=== PATIENT | male | born 1955 | race Caucasian/White ===

== ENCOUNTER 2024-01-02 05:54 | Observation (INO) ==
--- NOTE | 2023-12-28 14:45 | Anesthesiology Consultation ---
Date of Service December 28, 2023 Assessment & Plan (1) Encounter for pre-operative examination: Chart Review Chart Review: Pending: Refer to Additional Notes / Consult section (please obtain most recent Cardio note for additional info and 12/28/23 PCP note/triage Re: current sx) and Patient NOT seen in Pre Admission Testing Infectious Disease screening: Per PAT nursing assessment on 12/28/23, No known infectious disease contacts in past 10 days. No recent travel outside the country. Pt notes cough and sinus congestion since 12/10/23. Taking OTC Robitussin. Has taken 2 home COVID-19 tests; both negative: 12/19/23 and 12/23/23. Pt to call PCP 12/28/23 to discuss current sx in preparation for upcoming surgery. History Surgery Operation Date: 01/02/24 09:25 Proposed Procedures p Laparoscopic Robotic Assisted Radical Retropubic Prostatectomy, Possible Open, Possible Pelvic Lymph Node Dissection - Bernard Barclay MD Height/Weight Height: 5 ft 10 in Weight: 99.79 kg Allergies Allergy/AdvReac Type Severity Reaction Status Date / Time shrimp Allergy Intermediate HIVES Verified 12/28/23 13:27 Shellfish Allergy Intermediate hives Uncoded 12/28/23 13:27 Medications Home Medications Medication Instructions Recorded Confirmed Last Taken Lactobacillus-Bifidobacterium 30 1 cap PO HS 09/06/23 12/28/23 Unknown billion cell capsule,delayed release celecoxib 200 mg capsule (Celebrex) 200 mg PO QAM 09/06/23 12/28/23 Unknown cholecalciferol (vitamin D3) 25 25 mcg PO HS 09/06/23 12/28/23 Unknown mcg (1,000 unit) capsule coenzyme Q10 100 mg capsule 300 mg PO HS 09/06/23 12/28/23 Unknown empagliflozin 25 mg tablet 25 mg PO QAM 09/06/23 12/28/23 Unknown (Jardiance) isosorbide mononitrate 30 mg 15 mg PO BID 09/06/23 12/28/23 Unknown tablet,extended release 24 hr magnesium oxide 250 mg PO HS 09/06/23 12/28/23 Unknown metoprolol succinate 25 mg 25 mg PO QAM 09/06/23 12/28/23 Unknown tablet,extended release 24 hr nitroglycerin 0.4 mg sublingual 0.4 mg sublingual Q5M PRN Chest 09/06/23 12/28/23 Unknown tablet Pain sitagliptin phosphate 100 mg 100 mg PO QAM 09/06/23 12/28/23 Unknown tablet (Januvia) alpha lipoic acid 300 mg capsule 300 mg PO BID 12/28/23 12/28/23 Unknown ascorbate calcium (vitamin C) 500 500 mg PO BID 12/28/23 12/28/23 Unknown mg tablet aspirin 81 mg capsule 81 mg PO HS 12/28/23 12/28/23 Unknown atorvastatin 40 mg tablet (Lipitor) 40 mg PO HS 12/28/23 12/28/23 Unknown calcium carbonate 333 mg-magnesium 1 tab PO QAM 12/28/23 12/28/23 Unknown oxide 133 mg-zinc sulf 5 mg tablet ezetimibe 10 mg tablet (Zetia) 10 mg PO QAM 12/28/23 12/28/23 Unknown folic acid 400 mcg tablet 0.4 mg PO HS 12/28/23 12/28/23 Unknown guaifenesin 100 mg/5 mL oral liquid 200 mg PO Q4H PRN Cough 12/28/23 12/28/23 Unknown losartan 50 mg tablet 50 mg PO BID 12/28/23 12/28/23 Unknown metformin 1,000 mg tablet 1,000 mg PO BID 12/28/23 12/28/23 Unknown vsuvhtfxwhtv-jvewtcwk-mkguzk 1 tab PO QAM 12/28/23 12/28/23 Unknown tablet (Multivitamin 50 Plus tablet) omeprazole 20 mg capsule,delayed 20 mg PO QAM 12/28/23 12/28/23 Unknown release turmeric root extract 500 mg tablet 1,500 mg PO BID 12/28/23 12/28/23 Unknown vitamin A-vitamin C-vit E-min 1 tab PO QAM 12/28/23 12/28/23 Unknown tablet vitamin B complex 1 tab PO QAM 12/28/23 12/28/23 Unknown Past Medical History Medical History (Updated 12/28/23 @ 15:11 by Roro Manriquez PA-C) CAD (coronary artery disease) s/p CABG x 1 1992 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 Diabetes mellitus, type 2 NIDDM GERD (gastroesophageal reflux disease) HTN (hypertension) Hx of basal cell carcinoma treated with a cream. Hyperlipidemia Osteoarthritis Peripheral vascular disease Prostate cancer dx 10/2023 SCC (squamous cell carcinoma) current - treating with cream located on right cheek Sleep apnea bipap at night URI (upper respiratory infection) current sinus congestion and cough since 12/10/23. treating with OTC cough medication. advised to call PCP today to evaluate for upcoming surgery. Past Family History Family History Mother , in her 70s Diabetes Hx of CABG Dementia Father , in his 80s Myocardial infarction Stroke Oral cancer Brother Cancer of kidney Myocardial infarction Diabetes Hx of CABG Sister Diabetes Sister Diabetes Daughter No problems noted. Past Surgical History Surgical History (Updated 12/28/23 @ 15:11 by Roro Manriquez PA-C) H/O basal cell carcinoma excision (2000) History of cardiac cath (1991) r/t angina - no stents, attempted angioplasty. History of colonoscopy History of surgery Surgery on right groin (iliac artery) due to restricted circulation History of tonsillectomy Hx of LASIK (2003) bilateral Hx of prostate biopsy (11/14/23) GHAZALA Torres S/P angioplasty (1991) S/P CABG x 1 (1992) 07/1992 S/P UPPP (uvulopalatopharyngoplasty) Social History Smoking Status: Former smoker Smoking cigarettes per day: 1 PPD x 30 yrs Do You Dip or Chew Tobacco: No Smoking End Date: 02/2003 Hx Alcohol Use: Yes Alcohol type: hard liquor alcohol intake frequency: holidays/special occasions only Hx Substance Use: No Lab Results Anesthesia Preop Results Results Anesthesia Widget: WBC 7.34 K/ul (4.8-10.8) 12/28/23 Hgb 14.6 g/dl (14.0-18.0) 12/28/23 Hct 42.2 % (42.0-52.0) 12/28/23 Plt 193 K/uL (130-400) 12/28/23 Na 138 mmol/L (136-145) 12/28/23 K 4.2 mmol/L (3.5-5.1) 12/28/23 Cl 104 mmol/L (98-107) 12/28/23 CO2 26 mmol/L (21-32) 12/28/23 BUN 16 mg/dl (6-23) 12/28/23 Creat 1.13 mg/dl (0.6-1.4) 12/28/23 Glucose Level 126 mg/dl (70-99(Fasting)) H 12/28/23 PT 10.2 Seconds (9.0-12.0) 12/18/23 PTT 26 Seconds (21-31) 12/18/23 INR 0.9 (0.9-1.1) 12/18/23 Testing Electrocardiogram Date: 12/28/23 SB with 1st degree AVB. 59bpm. Compared to 05/18/16, [place] interval has increased. Chest X-Ray Date: 12/28/23 Findings: + NAD stable CM
[2024-01-02] MEDS: LACTATED RINGER'S 1,000 ML IV SCH (06:18)
[2024-01-02] MEDS: HEPARIN SOD 5,000 UNIT/0.5 ML VIAL SQ SCH ×2 (06:44→20:22)
[2024-01-02] MEDS ORDERED: MIDAZOLAM HCL 1 MG/ML 2ML VIAL ONE (06:46)
[2024-01-02] MEDS ORDERED: fentaNYL citrate PF 100 MCG/2 ML VIAL ONE ×2 (06:46→10:07)
[2024-01-02] MEDS ORDERED: LIDOCAINE 2% 2 ML VIAL/AMP(20MG/ML) INFIL ONE (06:46)
[2024-01-02] MEDS ORDERED: ONDANSETRON INJ 2 MG/ML 2 ML VIAL ONE ×2 (06:47→10:09)
[2024-01-02] MEDS ORDERED: DEXAMETHASONE SOD INJ 4 MG/ML VIAL ONE (06:47)
[2024-01-02] MEDS ORDERED: GLYCOPYRROLATE 0.2 MG/ML VIAL ONE (06:47)
[2024-01-02] MEDS ORDERED: NEOSTIGMINE METHYLSULFATE 1 MG/ML 10ML VIAL ONE (06:47)
[2024-01-02] MEDS ORDERED: ePHEDrine sulfate 50 MG/ML AMP IV PRN (07:11)
[2024-01-02] MEDS ORDERED: ONDANSETRON INJ 2 MG/ML 2 ML VIAL IV PRN ×2 (07:11→11:36)
[2024-01-02] MEDS ORDERED: HYDROmorphone INJ 2 MG/ML SYR/VIAL IV PRN (07:11)
[2024-01-02] MEDS ORDERED: fentaNYL citrate PF 100 MCG/2 ML VIAL IV PRN (07:11)
[2024-01-02] MEDS ORDERED: PROMETHAZINE HCL 6.25 MG in SODIUM CHLORIDE 0.9% 50 ML IV PRN (07:11)
[2024-01-02] MEDS ORDERED: ATROPINE SULFATE 0.1 MG/ML 10ML SYR IV PRN (07:11)
--- NOTE | 2024-01-02 07:19 | History & Physical Bridge Note ---
Date of Service January 02, 2024 History & Physical Bridge Note I have examined the patient, reviewed the History & Physical and in the interval since the performance of the History & Physical I have noted the following changes of clinical significance: no changes noted
--- OUTSIDE RECORDS SUMMARY | 2024-01-02 07:36 | External Medical Summary | Summary of Care ---
Author Name Unknown Organization [facility] Address [address] [address] [facility] [place] [address] Phone [phone] Care Team Providers Care Binding Cementer French Cord Name Role Phone Casandra CHIRINOS MD, Omer Fernando Primary Care Provider [phone] Reason for Visit * Reason Comments Acute Encounter Details Date Type Department Care Team (Late st Contact Info) Description 12/29/2023 11:20 AM EDT Office Visit Family Medicine [address] [place] [phone] Bree Noel PA-C [address] [place] [address] [place] [address] Bronchitis, complicated* Allergies Active Allergy Reactions Criticality Noted Date Comments Lisinopril Cough 12/07/2016 Shellfish Hives 07/03/2007 documented as of this encounter (statuses as of 12/29/2023) Medications Medication Sig Dispensed Refills Start Date End Date Status ASPIRIN EC LOW STRENGTH 81 MG PO TBECIndications:in evening Take 1 Tablet by mouth in the morning. 34 5 01/11/2007 Active VITAMIN C 1000 MG PO TABS 1 tablet per day Active Multiple Vitamins-Minerals (OCUVITE ADULT FORMULA) CAPS Take 1 Cap by mouth daily. Active Cholecalciferol (VITAMIN D-3) 1000 UNITS Capsule Take 2 Capsules by mouth in the morning. Active B Complex Capsule Take 1 Cap by mouth 2 times a day. Active Coenzyme Q10 (CO Q 10) 100 MG CAPS Take 3 Caps by mouth daily. Active Blood Glucose Monitoring Suppl (ACCU-CHEK GUIDE) w/Device KIT Use as directed. 1 Kit 08/10/2018 Active ACCU-CHEK FASTCLIX LANCETS MISC Up to 4 times daily as directed 102 Each 11 08/10/2018 Active Magnesium 250 MG Oral Tablet Take 1 Tablet by mouth in the morning. 30 Tab 06/10/2020 Active Folic Acid 400 MCG Oral Tablet Take 1 Tablet by mouth in the morning. 30 Tab 06/10/2020 Active Probiotic & Acidophilus Ex St Oral CapsuleIndications:karla ly Take 1 Cap by mouth. Indications: daily 30 Cap 06/10/2020 Active BiPAP every night at bedtime. Active Alpha-Lipoic Acid 200 MG Oral Capsule Take 1 Cap by mouth daily. Active Turmeric 500 MG Oral Capsule Take 750 mg by mouth daily. Active Multivitamin Adult Oral Tablet Take by mouth . Active Nitroglycerin 0.4 MG/SPRAY Translingual Solution (Nitrolingual)Indicati ons:Coronary atherosclerosis Place under the tongue 1 [place] every 5 minutes as needed for Pain, Chest. As directed. 12 g 1 09/27/2021 Active Calcium Magnesium Zinc 333-133-5 MG Oral Tablet Take by mouth 1 Tablet daily . Active Metoprolol Succinate ER 25 MG Oral Tablet Extended Release 24 Hour (toPROL XL)Indications:Atheros clerosis of coronary artery of blackfeet heart without angina pectoris, unspecified vessel or lesion type,Exertional angina (HCC),Coronary artery disease involving blackfeet coronary artery of blackfeet heart without angina pectoris,HTN, goal below 140/90 Take 1 Tablet by mouth in the morning. 90 Tablet 3 02/20/2023 Active Accu-Chek Guide In Vitro Strip (Glucose Blood) Up to 4 times daily as directed 100 Strip 11 04/20/2023 Active Ezetimibe 10 MG Oral Tablet (Zetia) Take 1 Tablet by mouth in the morning. 90 Tablet 3 05/01/2023 Active Empagliflozin 25 MG Oral Tablet (Jardiance) Take 1 Tablet by mouth in the morning. 90 Tablet 3 06/19/2023 Active Celecoxib 200 MG Oral Capsule (CeleBREX) Take 1 Capsule by mouth in the morning. 90 Capsule 1 06/26/2023 Active Losartan Potassium 50 MG Oral Tablet (Cozaar)Indications:Dy slipidemia, goal LDL below 70 Take 1 Tablet by mouth in the morning and 1 Tablet before bedtime. 180 Tablet 3 07/03/2023 Active SITagliptin Phosphate 100 MG Oral Tablet (Januvia) Take 1 Tablet by mouth in the morning. In the morning.. 90 Tablet 1 08/01/2023 Active Omeprazole 20 MG Oral Capsule Delayed Release (PriLOSEC)Indications: Esophageal reflux Take 1 Capsule by mouth in the morning. 90 Capsule 1 09/28/2023 Active Isosorbide Mononitrate ER 30 MG Oral Tablet Extended Release 24 Hour (Imdur)Indications:Exe rtional angina (HCC) Take 1/2 tab in the morning and 1/2 tab at night. 90 Tablet 2 10/03/2023 Active Sulfamethoxazole-Trime thoprim 800-160 MG Oral Tablet (Bactrim DS) Use as directed. Twice daily to take the day before the biopsy, day of the biopsy, and day after the biopsy. 6 Tablet 10/26/2023 Active metFORMIN HCl 1000 MG Oral Tablet (Glucophage)Indication s:Type 2 diabetes mellitus with hemoglobin A1c goal of less than 7.0% ([facility]) Take 1 Tablet by mouth 2 times a day with morning and evening meals. 180 Tablet 1 10/30/2023 Active Atorvastatin Calcium 40 MG Oral Tablet (Lipitor)Indications:T ype 2 diabetes mellitus with hemoglobin A1c goal of less than 7.0% ([facility]),Atherosclerosis of coronary artery of blackfeet heart without angina pectoris, unspecified vessel or lesion type Take 1 Tablet by mouth in the morning. 90 Tablet 1 11/21/2023 Active Azithromycin 250 MG Oral Tablet (Zithromax Z-Natanael)Indications:Bron chitis, complicated Take two tablets by mouth on first day, then 1 tablet daily until gone 6 Tablet 12/29/2023 Active documented as of this encounter (statuses as of 12/29/2023) Active Problems Problem Noted Date Diagnosed Date S/P CABG x 1 10/26/2023 Gastroesophageal reflux disease 10/26/2023 Follicular non-Hodgkin's lymphoma 10/26/2023 CHD (congenital heart disease) 10/26/2023 Trigger finger of left hand 10/26/2023 PVD (peripheral vascular disease) 05/10/2023 Exertional angina 04/20/2023 Type 2 diabetes mellitus wit h diabetic peripheral angiopathy without gangrene 05/21/2021 Claudication in peripheral vascular disease 09/1 11/2020 Essential hypertension with goal blood pressure less than 140/90 02/18/2019 DYSLIPIDEMIA, GOAL LDL BELOW 70 07/09/2009 Overview: Per Lipid Taxonomy. Type 2 diabetes mellitus wit h hemoglobin A1c goal of less than 7.0% 05/28/2009 Overview: Per Diabetes Taxonomy. ICD-10 update of inactive term ADVANCE DIRECTIVE INFORMATION 04/11/2005 HISTORY OF TOBACCO USE 09/15/2004 CORONARY ATHEROSCLEROSIS OF UNSPECIFIED TYPE OF VESSEL, LAC VIEUX OR GRAFT FM [id number] DIS NEC PULSATILE TINNITUS SENSORNEUR HEAR LOSS NOS Sleep apnea Allergic rhinitis documented as of this encounter (statuses as of 12/29/2023) Resolved Problems Problem Noted Date Diagnosed Date Resolved Date Exertional angina 08/29/2022 10/06/2022 Type 2 diabetes mellitus wit h hemoglobin A1c goal of less than 7.0% 01/11/2007 05/28/2009 Overview: Per Diabetes Taxonomy. ICD-10 update of inactive term PURE HYPERCHOLESTEROLEM 06/30 Overview: Per Lipid Taxonomy. Tobacco use disorder 012 Other diseases of respirator y system, not elsewhere classified 04/12/2017 Hypertrophy of nasal turbinates 04/12/2017 documented as of this encounter (statuses as of 12/29/2023) Immunizations Name Administration Dates Next Due COVID-19 mRNA, LNP-s, No Pre serve, 2-Dose Series (Qnovo) 11/01/2021,05/21/2021,11/04/2020,10/12 COVID-19, MRNA-LNP, 23-24, P F, 30 MCG/0.3 mL, 12 YRS AND ABOVE, IM (PFIZER-Comirnaty) 06/15/2023 Covid-19, Mrna, Lnp-s, Pf, B ivalent, 30 Mcg, IM, 12 yrs and above (Pfizer) 04/18/2022 H1N1 2009 Influenza, IM 09/25/2009 Pneumococcal Conjugate Vacci ne, 20-valent ([id number]) 12/22/2021 Pneumococcal Polysaccharide PPV23 (Pneumovax) 06/10/2020,07/10/2006 RSV Vac., Recomb, Adjuvant, PF,0.5 Ml (Arexvy) 05/08/2023 Season Influenza, Quad, PF, Adjuvanted, 65+ Yrs, IM (FLUAD) 04/15/2020 Seasonal Influenza, PF, 6 M & above, IM , (FluLaval or Fluzone) 05/06/2019,04/18/2018 Seasonal Influenza, Quadriva lent Hd (Fluzone Hd) 04/20/2023,04/14/2021 Seasonal Influenza, Quadriva lent, No Preserve, IM 04/12/2022,04/12/2017,05/25/2016,06/09 Seasonal Influenza, Split, I IV3, With Preserve, Inj 04/02/2014,05/08/2013,05/31/2012,05/03,05/12/2010,07/27/2009,05/23/2007 ,06/15/2006,06/11/2005 TD, Preservative Free 10/11/2017 TDAP, Age 7 and older, IM (Adacel) 09/25/2007 Varicella Zoster Vaccine (Adult) 12/04/2014 Zoster Vaccine Recombinant (Shingrix) 09/18/2020 ,07/17/2020 documented as of this encounter Social History Tobacco Use Types Packs/Day Years Used Date Smoking Tobacco: Former Cigarettes 1 33 0 03/10/1970 - 03/10/2003 Smokeless Tobacco: Never Tobacco Cessation:Counseling Given: Not Answered Alcohol Use Standard Drinks/Week Comments Yes 0 (1 standard drink = 0.6 oz pur e alcohol) 1 drink every 6 months PHQ-2 Answer Date Recorded PHQ Adult Total Score 0 12/22/2021 Hunger Vital Sign Answer Date Recorded Within the past 12 months, y ou worried that your food would run out before you got the money to buy more. Never true 04/24/20 23 Within the past 12 months, t he food you bought just didn't last and you didn't have money to get more. Never true 04/24/2023 Sex and Gender Information Value Date Recorded Sex Assigned at Male 12/22/2021 8:18 AM EDT Gender Identity Male 12/22/2021 8:18 AM EDT Sexual Orientation Straight 12/22/2021 8: 18 AM EDT Job Start Date Occupation Industry Not on file Not on file Not on file documented as of this encounter Last Filed Vital Signs Vital Sign Reading Time Taken Comments Blood Pressure 140/60 12/29/2023 10:54 AM EDT Pulse 66 12/29/2023 10:54 AM EDT Temperature 36.6 C (97.9 F) 12/29/2023 10:54 AM E DT Respiratory Rate - - Oxygen Saturation 98% 12/29/2023 10:54 AM EDT Inhaled Oxygen Concentration - - Weight 98.4 kg (217 lb) 12/29/2023 10:54 AM EDT Height - - Body Mass Index 31.14 12/07/2023 2:00 PM EDT documented in this encounter Functional Status Functional Status Response Date of Assess ment Are you deaf or do you have serious difficulty h earing? No 04/16/2021 Are you blind or do you have serious difficulty seeing, even when wearing glasses? No 04/16/2021 Do you have serious difficul ty walking or climbing stairs? (5 years old or older) No 04/16/2021 Do you have difficulty dress ing or bathing? (5 years old or older) No 04/16/2021 Because of a physical, menta l, or emotional condition, do you have difficulty doing errands alone such as visiting a doctor s office or shopping? (15 years old or older) No 04/16/20 21 Cognitive Status Response Date of Assessm ent Because of a physical, menta l, or emotional condition, do you have serious difficulty concentrating, remembering, or making decisions? (5 years old or older) No 04/16/2021 documented as of this encounter Progress Notes * Bree Noel PA-C - 12/29/2023 10:56 AM EDT Nursing Notes: Jasmeet Christian LPN 12/29/23 1055 Signed Chief Complaint Patient presents with Acute Productive cough with White mucus and slowly improving Duration- 12 days Tx: Robitussin Surgery is Scheduled for Monday. Prostatectomy Gala advised that he has apt to be seen The patient has been properly identified by confirmation of name and date of . Pt here today with cough, chest congestion, white colored sputum, nasal/head congestion for the past 12 days. It is improving. Pt denies fever, chills, nausea, vomiting, diarrhea, chest pain, SOB. Heis having prostatectomy on 01/01 and anesthesia told him to come and be evaluated. Review of patient's allergies indicates: Allergen Reactions Lisinopril Cough Shrimp [Shellfish] Hives Current Outpatient Medications Medication Sig Dispense Refill ASPIRIN EC LOW STRENGTH 81 MG PO TBEC Take 1 Tablet by mouth in the morning. 34 5 VITAMIN C 1000 MG PO TABS 1 tablet per day Multiple Vitamins-Minerals (OCUVITE ADULT FORMULA) CAPS Take 1 Cap by mouth daily. Cholecalciferol (VITAMIN D-3) 1000 UNITS Capsule Take 2 Capsules by mouth in the morning. B Complex Capsule Take 1 Cap by mouth 2 times a day. Coenzyme Q10 (CO Q 10) 100 MG CAPS Take 3 Caps by mouth daily. Blood Glucose Monitoring Suppl (ACCU-CHEK GUIDE) w/Device KIT Use as directed. 1 Kit 0 ACCU-CHEK FASTCLIX LANCETS MISC Up to 4 times daily as directed 102 Each 11 Magnesium 250 MG Oral Tablet Take 1 Tablet by mouth in the morning. 30 Tab 0 Folic Acid 400 MCG Oral Tablet Take 1 Tablet by mouth in the morning. 30 Tab 0 Probiotic & Acidophilus Ex St Oral Capsule Take 1 Cap by mouth. Indications: daily 30 Cap 0 BiPAP every night at bedtime. Alpha-Lipoic Acid 200 MG Oral Capsule Take 1 Cap by mouth daily. Turmeric 500 MG Oral Capsule Take 750 mg by mouth daily. Multivitamin Adult Oral Tablet Take by mouth . Nitroglycerin 0.4 MG/SPRAY Translingual Solution (Nitrolingual) Place under the tongue 1 [place] every 5 minutes as needed for Pain, Chest. As directed. 12 g 1 Calcium Magnesium Zinc 333-133-5 MG Oral Tablet Take by mouth 1 Tablet daily . Metoprolol Succinate ER 25 MG Oral Tablet Extended Release 24 Hour (toPROL XL) Take 1 Tablet by mouth in the morning. 90 Tablet 3 Accu-Chek Guide In Vitro Strip (Glucose Blood) Up to 4 times daily as directed 100 Strip 11 Ezetimibe 10 MG Oral Tablet (Zetia) Take 1 Tablet by mouth in the morning. 90 Tablet 3 Empagliflozin 25 MG Oral Tablet (Jardiance) Take 1 Tablet by mouth in the morning. 90 Tablet 3 Celecoxib 200 MG Oral Capsule (CeleBREX) Take 1 Capsule by mouth in the morning. 90 Capsule 1 Losartan Potassium 50 MG Oral Tablet (Cozaar) Take 1 Tablet by mouth in the morning and 1 Tablet before bedtime. 180 Tablet 3 SITagliptin Phosphate 100 MG Oral Tablet (Januvia) Take 1 Tablet by mouth in the morning. In the morning.. 90 Tablet 1 Omeprazole 20 MG Oral Capsule Delayed Release (PriLOSEC) Take 1 Capsule by mouth in the morning. 90Capsule 1 Isosorbide Mononitrate ER 30 MG Oral Tablet Extended Release 24 Hour (Imdur) Take 1/2 tab in the morning and 1/2 tab at night. 90 Tablet 2 Sulfamethoxazole-Trimethoprim 800-160 MG Oral Tablet (Bactrim DS) Use as directed. Twice daily to take the day before the biopsy, day of the biopsy, and day after the biopsy. 6 Tablet 0 metFORMIN HCl 1000 MG Oral Tablet (Glucophage) Take 1 Tablet by mouth 2 times a day with morning and evening meals. 180 Tablet 1 Atorvastatin Calcium 40 MG Oral Tablet (Lipitor) Take 1 Tablet by mouth in the morning. 90 Tablet 1 No current facility-administered medications for this visit. Past Medical History: Diagnosis Date Allergic rhinitis 2004 Benign neoplasm of colon 11/13/18 diverticulosis, polyp x1, no evidence of adenomatous tissue repeat 5 yrs Diabetic eye exam (HCC) 02/10/2012 no diabetic retinopathy Hypertrophy of nasal turbinates 2005 Other diseases of respiratory system, not elsewhere classified 2004 bronchitis Personal history of colonic polyps 2005 [facility], benign, repeat 2010 Sleep apnea 2005 Social History Socioeconomic History Marital status: Spouse name: Elyse Number of children: Not on file Years of education: Not on file Highest education level: Not on file Occupational History Occupation: [employer] Employer: [employer] Tobacco Use Smoking status: Former Current packs/day: 0.00 Average packs/day: 1 pack/day for 33.0 years (33.0 ttl pk-yrs) Types: Cigarettes Start date: 03/10/1970 Quit date: 03/10/2003 Years since quittin.8 Smokeless tobacco: Never Vaping Use Vaping status: Never Used Substance and Sexual Activity Alcohol use: Yes Comment: 1 drink every 6 months Drug use: No Sexual activity: Not on file Other Topics Concern Service Not Asked Blood Transfusions No Caffeine Concern Not Asked Occupational Exposure Yes Comment: paper dust Hobby Hazards Not Asked Sleep Concern Not Asked Stress Concern Not Asked Weight Concern Not Asked Special Diet Not Asked Back Care Not Asked Exercise Yes Comment: limited escercise Bike Helmet Not Asked Seat Belt Not Asked Self-Exams Not Asked Social History Narrative Not on file Social Determinants of Health Financial Resource Strain: Not on file Food Insecurity: No Food Insecurity (04/24/2023) Hunger Vital Sign Worried About Running Out of Food in the Last Year: Never true Ran Out of Food in the Last Year: Never true Transportation Needs: Not on file Physical Activity: Not on file Stress: Not on file Social Connections: Not on file Intimate Partner Violence: Not on file Housing Stability: Not on file O:Blood pressure 140/60, pulse 66, temperature 36.6 C (97.9 F), temperature source Tympanic, weight 98.4 kg (217 lb), SpO2 98%. GENERAL: alert, healthy, and no distress NECK: supple, no adenopathy, no bruits, thyroid normal size, non-tender, without nodularity EYES: conjunctiva are pink and non-injected, sclera clear EARS: External ears normal, Canals clear, TM's Normal NOSE: no mucosal erythema, no mucosal edema, no purulent discharge OROPHARYNX: no exudate, no erythema, lips, buccal mucosa, and tongue normal, and mucous membranes are moist HEART: regular rate & rhythm, no murmur, and no gallops LUNGS: chest symmetric with normal AP diameter, no chest deformities noted, no chest wall tenderness, lungs clear to auscultation A:Bronchitis, complicated (Primary) - Azithromycin 250 MG Oral Tablet (Zithromax Z-Natanael); Take two tablets by mouth on first day, then 1tablet daily until gone Start above med. Any questions/problems, please call. If anything changes, worsens, develops new sx, please call MARLEN[facility]. Follow Up: Return if symptoms worsen or fail to improve. Bree Noel PA-C documented in this encounter Nursing Notes * Jasmeet Christian LPN - 12/29/2023 10:51 AM EDT Chief Complaint Patient presents with Acute Productive cough with White mucus and slowly improving Duration- 12 days Tx: Robitussin Surgery is Scheduled for Monday. Prostatectomy Gala advised that he has apt to be seen The patient has been properly identified by confirmation of name and date of . documented in this encounter Plan of Treatment Upcoming Encounters Date Type Department Care Team (Late st Contact Info) Description 04/25/2024 9:00 AM EDT Office Visit Family Practice [facility] [place] [address] [facility] [place] [address] Omer Guajardo III, MD [address] [facility] [place] [address] Scheduled Procedures Name Priority Associated Diagnoses Date/Ti me COLONOSCOPY FLEXIBLE PROXIMA L DIAGNOSTIC Recall Special screening for malignant neoplasms, colon Health Maintenance Due Date Last Done Comments Cologuard 1999 Fecal Occult Blood Test 1999 Sigmoidoscopy 09/18/2006 09/18/2001 Depression Screening 12/22/2022 12/22/2021 COVID-19 Vaccine ( season) 2023 06/15/2023, 04/18/2022, 11/01/2021, Additional history exists HbA1c 05/02/2024 11/01/2023, 03/31, 08/29/2022, Additional history exists Diabetic Eye Exam 06/28/2024 06/28/2023, , 09/20/2021, Additional history exists Albumin/Creatinine Ratio 10/05/2024 024, 08/29/2022, 08/27/2021, Additional history exists B-12 10/05/2024 10/06/2023, 08/02, 12/22/2021, Additional history exists GFR 10/05/2024 10/06/2023, 08/02, 02/17/2022, Additional history exists Diabetic Foot Exam 10/23/2024 10/24/2023, 0 08/27/2021, 06/10/2020, Additional history exists Colonoscopy 01/20/2026 01/20/2021, 12/30, 01/19/2015, Additional history exists Colorectal Cancer Screening 01/20/2026 DTaP,Tdap,and Td Vaccines (3 - Td or Tdap) 10/12/2027 10/11/2017, 09/25/2007, 11/22/1999 Hepatitis C Screening Completed 01/27/2012 Zoster Vaccines Completed 09/18/2020, 06/30, 12/04/2014 RETIRED - COLONOSCOPY-EVERY 5 YRS AGES 18-100 Discontinued 01/20/2021, 01/20/2021, 01/19/2015, Additional history exists AAA Screening Completed 05/11/2021, 04/14/2021 Pneumococcal Vaccine: 65+ Years Completed 12/22/2021, 06/10/2020, 07/10/2006 Influenza Vaccine (FLU shot) Completed 04/20/2023, 04/12/2022, 04/14/2021, Additional history exists GARDASIL-HPV IMMUNIZATION SERIES Aged Out No longer eligible based on patient's age to complete this topic Hepatitis B Aged Out No longer eligi ble based on patient's age to complete this topic MENINGOCOCCAL (MENACTRA/MENVEO) Aged Out No longer eligible based on patient's age to complete this topic documented as of this encounter Medical Devices Implanted Type Area Director Cloud Transformation Device Identifier Shelf Expiration Date Model / Serial / Lot Patch Xenosure Vascular 2x9cm - [id number] Implanted:Qty : 1 on 04/16/2021 by Kwame Ktae MD at [facility] Right: Femoral Artery [employer] [id number] 06/27/2026 [id number] / [id number] / [id number] documented as of this encounter Visit Diagnoses Diagnosis Bronchitis, complicated- Primary Bronchitis, not specified as acute or chronic documented in this encounter Advance Directives * Full Code (Latest Code Status on File) Date Activated Date Inactivated Comments 04/16/2021 9:52 AM 04/17/2021 3:56 PM This order r eflects the patients wishes and were consensually agreed upon. Question Answer Comments Discussion of Advance Directives occurred with: Not Discussed * Full Code Date Activated Date Inactivated Comments 04/24/2008 1:01 PM 04/25/2008 7:05 PM Care Teams Binding Cementer French Cord Relationship Specialty Start Date End Date Omer Guajardo III, MD [address] [facility], [place] [address] PCP - General 01/18/1999 documented as of this encounter
[2024-01-02] MEDS: ceFAZolin 2000MG 2,000 MG/15 ML SYR IV SCH ×2 (07:45→15:41)
[2024-01-02] MEDS ORDERED: PROPOFOL IV EMULSION 10 MG/ML 20 ML VIAL IV ONE (08:56)
[2024-01-02] MEDS ORDERED: ROCURONIUM BROMIDE 10 MG/ML 5 ML VIAL IV ONE (08:56)
[2024-01-02] MEDS: BUPIVACAINE 0.5 % 5 MG/1 ML MPF 30ML VIAL ONE (10:12)
[2024-01-02] MEDS: FLOSEAL HEMOSTATIC MATRIX 10ML TOP ONE (10:18)
--- NOTE | 2024-01-02 10:32 | Operative Report ---
PG Post Operative Report Pre & Post Diagnosis Operation Date: 01/02/24 07:30 Pre-Op Diagnosis: Malignant Neoplasm of Prostate Post-Op Diagnosis: Malignant Neoplasm of Prostate I identified the patient and participated in the time-out.: Yes Procedure Operation Date: 01/02/24 07:30 Actual Procedures p Laparoscopic Robotic Assisted Radical Retropubic Prostatectomy, Pelvic Lymph Node Dissection; Closure of umbilical hernia(Not Applicable) - Bernard Barclay MD Surgeon Bernard Barclay MD [facility] Melissa Allen Estimated Blood Loss 50 Findings Consistent with Post-Op Diagnosis Specimens 1. Periprostatic fat 2. Prostate and seminal vesicles 3. Left pelvic lymph nodes 4. Right pelvic lymph nodes Description of Procedure The patient was identified in the preoperative holding area, appropriate informed consents were reviewed and completed, and he was transported to the operating suite. Subcutaneous heparin was administered in the pre-operative holding area. Upon arrival in the operating suite, he received appropriate antibiotics and general anesthesia. He was positioned in dorsal lithotomy, a B&O suppository was inserted after digital rectal exam, and he was prepped and draped in standard fashion. A Orozco catheter was inserted in the sterile field. A Veress needle was passed per umbilicus with uniform insufflation of the abdomen to 15mmHg. He was placed in steep Trendelenburg position. A periumbilical incision was then made to accommodate a 12mm Visiport with 10mm 0degree laparoscope. Inspection of the abdomen was carried out, and there was no evidence of traumatic entry or injury secondary to the Veress needle. After confirming a clear anterior abdominal wall, ports were subsequently placed in standard robotic prostatectomy fashion without incident. To begin the robotic portion of the case, the left lateral aspect of the sigmoid was mobilized off of the left pelvic side wall to allow the pouch of Dima to be appropriately visualized. I then made an incision in the pouch of Dima, overlying the seminal vesicles. Both SVs as well as the ampullae of the vasa were entirely dissected, with the vasa transected 3cm from the prostate. The medial umbilical ligaments were then controlled with bipolar electrocautery just inferior to the umbilicus. Following cauterization, they were divided utilizing monopolar cautery. A peritoneal incision was carried from this location to the medial aspect of the internal inguinal rings bilaterally with care to avoid opening through the ring. This incision was concluded when the vas deferens was reached. Dissection of the bladder and prostate off of the posterior aspect of the pubic arch was completed allowing full visualization of the prostate. The fat overlying the prostate was removed en bloc and passed off the table as a specimen labeled "periprostatic fat". The endopelvic fascia was cleared during this portion of the procedure, and subsequently opened - first on the right and then the left. The incision through the endopelvic fascia began near the prostate-bladder junction and was carried to the apex with extreme care to preserve all lateral levator musculature as well as the periurethral musculature and sphincter complex. I additionally preserved the puboprostatic ligaments. I then controlled the DVC with a 3-0 V-lock suture in overlapping/figure of 8 fashion. The lymph node dissection was then conducted. External iliac vessels were identified on the pelvic side wall. The packet of fat and lymphatic tissue that resides just under the iliac vein was elevated and off of the vein with a split and roll technique. The packet was dissected laterally to the circumflex vein and distally to the obturator nerve which was preserved. The proximal aspect of the packet was carried towards the bifurcation of the iliac vessels. A combination of monopolar and bipolar cautery were used to assist with control. After completing the dissection on both sides, the packets were collected and passed off of the table as specimens labeled "pelvic lymph nodes". My attention then returned to the prostate, with identification of the bladder neck aided by gentle traction on the Orozco catheter and lateral to medial pressure at the presumed level of the bladder neck with the robotic instruments. An anterior cystotomy was made, the Orozco balloon deflated and the catheter guided through the incision to allow anterior retraction. I attempted to preserve maximal bladder neck musculature as I circumferentially dissected around the bladder neck. After incision through the posterior aspect of the mucosa, the dissection was carried through detrusor muscle until the bilateral ampullae of the vasa were identified. The previously dissected vasa and SVs were brought through the incision and used to elevated the prostate anteriorly. A posterior plane behind the prostate was then developed - splitting Denonvilliers's fascia. This dissection was carried as far as possible towards the apex as well as far as possible laterally. An incision in the lateral prostatic fascia was then made bilaterally to facilitate control of the vascular pedicles and preservation of the nerve bundles. Vasculature running along the posterior/lateral aspect of the prostate was preserved as well as the tissue containing the nerves. Of note, the right side was approached much more conservatively than the left and there were 3 distinct areas of the prostate that showed abnormal protuberance. One near the base/junction with the bladder, another in the mid portion of the right peripheral zone, and a third near the right apex. Caution was used around each of these areas. The pedicles were then controlled with a series of Weck clips. The apical attachments of the prostate were remaining at that stage. The DVC was divided after control with bipolar cautery over the prostate. Continuous inspection from anterior and lateral views allowed me to closely follow the apical contour of the prostate and maximally preserve urethral length and tissue. The prostate was entirely freed at that point, and collected in an EndoCatch bag before being moved out of the field of vision. Hemostasis was confirmed and anastomosis of the bladder and urethra was completed utilizing a double armed V- Lock stitch. A new Orozco catheter was inserted and the anastomosis tested with irrigation. There was no evidence of leak. A marlen style stitch was placed bilaterally to functionally marsupialize the area of the lymph node dissection. The robot was undocked, the specimen extracted through expansion of the yunier- umbilical camera port. Of note, he has an umbilical hernia so I opened the fascia through the hernia to facilitate closure of the umbilical hernia. The fascia was closed with a series of 0-PDS figure of 8 stitches with careful reapproximation across the hernia defect. The right journeyman operator assistant port was closed in two layers - with a figure of 8 0-Vicryl to reapproximate the fascia followed by 4-0 Monocryl to close the skin. Monocryl was used to close all other skin incisions. All wounds were dressed with Dermabond. The case was concluded and the patient taken to the PACU in stable condition. Melissa Allen assisted from incision to closure. I attest to the content of the Intraoperative Record and any orders documented therein. Any exceptions are noted below.
[2024-01-02 11:06] LABS: Basophils # (auto) 0.04 K/uL (0.00-0.20); Basophils % (auto) 0.4 %; Eosinophils # (auto) 0.03 K/uL (0.00-0.50); Eosinophils % (auto) 0.3 %; Hematocrit (blood only) 42.5 % (42.0-52.0); Hemoglobin 14.3 g/dl (14.0-18.0); Immature Granulocytes # (auto) 0.04 K/uL (0.01-0.20); Immature Granulocytes % (auto) 0.4 %; Lymphocytes # (auto) 0.81 K/uL (1.20-3.40); Lymphocytes % (auto) 7.8 %; Mean Corpuscular Hemoglobin 31.7 pg (25.0-34.0); Mean Corpuscular Hgb Conc 33.6 g/dL (32.0-36.0); Mean Corpuscular Volume 94.2 fL (80.0-100.0); Mean Platelet Volume 10.9 fL (9.4-12.4); Monocytes # (auto) 0.22 K/uL (0.11-0.59); Monocytes % (auto) 2.1 %; Neutrophils # (auto) 9.22 K/uL (1.40-6.50); Platelet Count 191 K/uL (130-400); RDW Coefficient of Variation 13.2 % (11.5-14.5); Red Blood Count 4.51 M/uL (4.70-6.10); White Blood Count 10.36 K/ul (4.8-10.8)
--- NOTE | 2024-01-02 11:14 | Anesthesiology Progress Note ---
Date of Service January 02, 2024 Anesthesia Post Procedure Vital Signs Vital Signs: Temp Pulse Pulse Resp BP Pulse Ox O2 Del Method 01/02/24 11:10 43 L 13 113/53 L 97 Room Air 01/02/24 11:00 44 L 13 116/51 L 98 Oxymask 01/02/24 10:50 48 L 14 111/55 L 100 Oxymask 01/02/24 10:40 44 L 15 121/59 L 97 Oxymask 01/02/24 10:34 37.0 C 48 L 16 127/58 L 97 Oxymask 01/02/24 06:16 37 C 65 18 139/69 98 Room Air O2 Flow Rate 01/02/24 11:10 01/02/24 11:00 2 01/02/24 10:50 6 01/02/24 10:40 6 01/02/24 10:34 6 01/02/24 06:16 Pain Intensity Penis: Pain Intensity: 3 Transfer of Care Handoff Completed per policy Notes Mental Status: alert / awake / arousable and participated in evaluation Patient Amnestic to Procedure: Yes Nausea / Vomiting: adequately controlled Pain: adequately controlled Airway Patency, RR, SpO2: stable & adequate BP & HR: stable & adequate Hydration State: stable & adequate Anesthetic Complications: no major complications apparent
[2024-01-02 11:16] LABS: BUN Creatinine Ratio 11.3 (10-20); Calcium 8.4 mg/dl (8.6-10.3); Potassium 5.7 mmol/L (3.5-5.1)
[2024-01-02] MEDS ORDERED: PHARMACY GLYCEMIC MGMT CONSULT PRN (11:36)
[2024-01-02] MEDS ORDERED: NITROGLYCERIN SL 0.4 MG/TAB TAB SL PRN (11:36)
[2024-01-02] MEDS ORDERED: oxyCODONE HCL IR 5 MG TAB (IMMEDIATE RELEASE) PO PRN (11:36)
[2024-01-02] MEDS ORDERED: MoRPHine SULFATE 4 MG/ML 1 ML CARP\\VIAL IV PRN (11:36)
[2024-01-02] MEDS: SODIUM CHLORIDE 0.9% 1,000 ML IV SCH (11:49)
[2024-01-02] MEDS: MoRPHine SULFATE 2 MG/ML CARP IV PRN (12:38)
[2024-01-02] MEDS: ACETAMINOPHEN 325 MG TAB PO SCH (12:39)
[2024-01-02] MEDS: INSULIN ASPART PER UNIT CHARGE SC SCH (12:44)
[2024-01-02] MEDS: LANTUS PER UNIT CHARGE SC ONE ×2 (12:46→21:17)
--- NOTE | 2024-01-02 14:55 | Pharmacy Report ---
Pharmacy Glycemic Short Note 2 - Date of Service January 02, 2024 - Glycemic Short BSG Results (Last 24 hours): 01/02/24 01/02/24 01/02/24 06:36 10:40 10:43 Glucose 229 H POC Glucose 150 H 219 H 01/02/24 12:35 Glucose POC Glucose 208 H OUTPATIENT ANTIDIABETIC REGIMEN: * Empagliflozin; metformin; sitagliptin * A1c pending ASSESSMENT: * Patient admitted post prostatectomy, * BSGs 150-219-208 mg/dL today pre/post-op; steroid use in OR, ordered clear liquid diet * Lantus 15 units x1 with additional dose tonight if BSGs continue to be elevated * Begin weight based stress of 2 novolog * Overnight checks PLAN FOR INPATIENT GLYCEMIC CONTROL: * Hold outpatient oral diabetes medications * Basal insulin * Lantus 15 units x 1, 5/10 units HS x 1 per scale * Bolus insulin * NovoLog per scale ACHS or Q6hrs while NPO * Goal Range: Low 110 mg/dL - High 140 mg/dL * Correction Factor: 25 mg/dL/unit * Nutritional / Prandial insulin per carb ratio of 1 unit per 8 grams CHO consumed
[2024-01-02] MEDS: oxyCODONE HCL IR 5 MG TAB (IMMEDIATE RELEASE) PO PRN (17:52)
[2024-01-02] MEDS: DOCUSATE SODIUM 100 MG CAP PO SCH (20:22)
[2024-01-02] MEDS: LOSARTAN POTASSIUM 50 MG TAB PO SCH (20:22)
[2024-01-02] MEDS: ATORVASTATIN 40 MG TAB PO SCH (20:22)
[2024-01-02] MEDS: ISOSORBIDE MONO EXTENDED REL 30 MG TABCR PO SCH (20:22)
[2024-01-02] MEDS: FOLIC ACID 400 MCG TAB PO SCH (20:22)
[2024-01-02] MEDS: ASPIRIN 81 MG ECTAB PO SCH (20:22)
[2024-01-02] MEDS: ASCORBIC ACID 500 MG TAB PO SCH (20:22)
--- OUTSIDE RECORDS SUMMARY | 2024-01-02 22:25 | External Medical Summary | Summary of Care ---
Author Name Unknown Organization [facility] Address [address] [place] [address] Phone [phone] Care Team Providers Care Operator Coating Furnace Name Role Phone Casandra CHIRINOS MD, Martin Fernando Primary Care Provider [phone] Reason for Visit * Reason Onset Date Comments Medication Refill 12/31/2023 Encounter Details Date Type Department Care Team (Late st Contact Info) Description 12/31/2023 Refill Family Practice [facility] [place] [address] [facility] [place] [address] Maegan Urias PA-C [address] [place] [address] Encounter for long-term (current) use of medications* Allergies Active Allergy Reactions Criticality Noted Date Comments Lisinopril Cough 12/07/2016 Shellfish Hives 07/03/2007 documented as of this encounter (statuses as of 01/02/2024) Medications Medication Sig Dispensed Refills Start Date [...] Active Probiotic & Acidophilus Ex St Oral CapsuleIndications:da russel Take 1 Cap by mouth. Indications: daily 30 Cap 06/10/2020 Active BiPAP every night at bedtime. Active Alpha-Lipoic Acid 200 MG Oral Capsule Take 1 Cap by mouth daily. Active Turmeric 500 MG Oral Capsule Take 750 mg by mouth daily. Active Multivitamin Adult Oral Tablet Take by mouth . Active Nitroglycerin 0.4 MG/SPRAY Translingual Solution (Nitrolingual)Indicat ions:Coronary atherosclerosis Place under the tongue 1 Mercedes every 5 minutes as needed for Pain, Chest. As directed. 12 g 1 09/27/2021 Active Calcium Magnesium Zinc 333-133-5 MG Oral Tablet Take by mouth 1 Tablet daily . Active Metoprolol Succinate ER 25 MG Oral Tablet Extended Release 24 Hour (toPROL XL)Indications:Athero sclerosis of coronary artery of citizen [place] heart without angina pectoris, unspecified vessel or lesion type,Exertional angina (HCC),Coronary artery disease involving citizen [place] coronary artery of citizen [place] heart without angina pectoris,HTN, goal below 140/90 [...] the morning. 90 Tablet 3 06/19/2023 Active Losartan Potassium 50 MG Oral Tablet (Cozaar)Indications:D yslipidemia, goal LDL below 70 Take 1 Tablet by mouth in the morning and 1 Tablet before bedtime. 180 Tablet 3 07/03/2023 Active SITagliptin Phosphate 100 MG Oral Tablet (Januvia) Take 1 Tablet by mouth in the morning. In the morning.. 90 Tablet 1 08/01/2023 Active Omeprazole 20 MG Oral Capsule Delayed Release (PriLOSEC)Indications :Esophageal reflux Take 1 Capsule by mouth in the morning. 90 Capsule 1 09/28/2023 Active Isosorbide Mononitrate ER 30 MG Oral Tablet Extended Release 24 Hour (Imdur)Indications:Ex ertional angina (HCC) Take 1/2 tab in the morning and 1/2 tab at night. 90 Tablet 2 10/03/2023 Active Sulfamethoxazole-Trim ethoprim 800-160 MG Oral Tablet (Bactrim DS) Use as directed. Twice daily to take the day before the biopsy, day of the biopsy, and day after the biopsy. 6 Tablet 10/26/2023 Active metFORMIN HCl 1000 MG Oral Tablet (Glucophage)Indicatio ns:Type 2 diabetes mellitus with hemoglobin A1c goal of less than 7.0% ([facility]) Take 1 Tablet by mouth 2 times a day with morning and evening meals. 180 Tablet 1 10/30/2023 Active Atorvastatin Calcium 40 MG Oral Tablet (Lipitor)Indications: Type 2 diabetes mellitus with hemoglobin A1c goal of less than 7.0% ([facility]),Atherosclerosis of coronary artery of citizen [place] heart without angina pectoris, unspecified vessel or lesion type Take 1 Tablet by mouth in the morning. 90 Tablet 1 11/21/2023 Active Azithromycin 250 MG Oral Tablet (Zithromax Z-Natanael)Indications:Bro nchitis, complicated Take two tablets by mouth on first day, then 1 tablet daily until gone 6 Tablet 12/29/2023 Active Celecoxib 200 MG Oral Capsule (CeleBREX) Take 1 Capsule by mouth in the morning. 90 Capsule 1 01/02/2024 Active Celecoxib 200 MG Oral Capsule (CeleBREX) Take 1 Capsule by mouth in the morning. 90 Capsule 1 06/26/2023 Discontinue d(Refill) documented as of this encounter (statuses as of 01/02/2024) Active Problems Problem Noted Date Diagnosed Date S/P CABG x 1 10/26/2023 Gastroesophageal reflux disease 10/26/2023 Follicular non-Hodgkin's lymphoma 10/26/2023 CHD (congenital heart disease) 10/26/2023 Trigger finger of left hand 10/26/2023 PVD (peripheral vascular disease) 05/10/2023 Exertional angina 04/20/2023 Type 2 diabetes mellitus wit h diabetic peripheral angiopathy without gangrene 05/21/2021 Claudication in peripheral vascular disease 03/31 Essential hypertension with goal blood pressure less than 140/90 02/18/2019 DYSLIPIDEMIA, GOAL LDL BELOW 70 07/09/2009 Overview: Per Lipid Taxonomy. Type 2 diabetes mellitus wit h hemoglobin A1c goal of less than 7.0% 05/28/2009 Overview: Per Diabetes Taxonomy. ICD-10 update of inactive term ADVANCE DIRECTIVE INFORMATION 04/11/2005 HISTORY OF TOBACCO USE 09/15/2004 CORONARY ATHEROSCLEROSIS OF UNSPECIFIED TYPE OF VESSEL, KALTAG OR GRAFT FM [id number] DIS NEC PULSATILE TINNITUS SENSORNEUR HEAR LOSS NOS Sleep apnea Allergic rhinitis documented as of this encounter (statuses as of 01/02/2024) Resolved Problems Problem Noted Date Diagnosed Date [...] as of this encounter (statuses as of 01/02/2024) Immunizations Name Administration Dates Next Due COVID-19 mRNA, LNP-s, No Pre serve, 2-Dose Series (Pfizer) 11/01/2021,05/21/2021,11/04/2020,10/12 COVID-19, MRNA-LNP, 23-24, P F, 30 MCG/0.3 mL, 12 YRS AND ABOVE, IM (PFIZER-Comirnaty) 06/15/2023 Covid-19, Mrna, Lnp-s, Pf, B ivalent, 30 Mcg, IM, 12 yrs and above (Pfizer) 04/18/2022 H1N1 2009 Influenza, IM 09/25/2009 Pneumococcal Conjugate Vacci ne, 20-valent ([id number]) 12/22/2021 Pneumococcal Polysaccharide PPV23 (Pneumovax) 06/10/2020,07/10/2006 RSV [...] 0 03/10/1970 - 03/10/2003 Smokeless Tobacco: Never Alcohol Use Standard Drinks/Week Comments Yes 0 [...] on file documented as of this encounter Functional Status Functional Status Response [...] (15 years old or older) No 04/16/20 Cognitive Status Response Date of Assessm ent Because of a physical, menta l, or emotional condition, do you have serious difficulty concentrating, remembering, or making decisions? (5 years old or older) No 04/16/2021 documented as of this encounter Miscellaneous Notes * Telephone Encounter - Sowmya Bustillo RPh - 01/02/2024 8:29 AM EDTSigned Prescriptions: Disp Refills Celecoxib 200 MG Oral Capsule (CeleBREX) 90 Cap*1 Sig: Take 1 Capsule by mouth in the morning.Authorizing Provider: MARTIN STERN III User: SOWMYA BUSTILLO documented in this encounter Plan of Treatment Upcoming Encounters Date Type Department Care Team (Late st Contact Info) Description 04/25/2024 9:00 AM EDT Office Visit Family Practice [facility] [place] [address] [place], [place] [id number] Martin Stern III, MD [address] [place] [address] Scheduled Orders Name Type Priority Associated Diagnoses Orde r Schedule ALT Lab Routine Encounter for long-term (current) use of medications Expected: 01/02/2024, Expires: 01/01/2025 HGB Lab Routine Encounter for long-term (current) use of medications Expected: 01/02/2024, Expires: 01/01/2025 Scheduled Procedures Name Priority Associated Diagnoses Date/Ti [...] this encounter Medical Devices Implanted Type Area Counselling Psychologist Device Identifier Shelf Expiration Date Model / Serial / Lot Patch Xenosure Vascular 2x9cm - [id number] Implanted:Qty : 1 on 04/16/2021 by Kwame Kate MD at [facility] Right: Femoral Artery [employer] [id number] 06/27/2026 [id number] / [id number] / [id number] documented as of this encounter Visit Diagnoses Diagnosis Encounter for long-term (current) use of medications- Primary Encounter for long-term (current) use of other medications documented in this encounter Advance Directives * [...] 1:01 PM 04/25/2008 7:05 PM Care Teams Operator Coating Furnace Relationship Specialty Start Date End Date Martin Stern III, MD [address] [place] [address] PCP - General 01/18/1999 documented as of this encounter
[2024-01-03] MEDS: INSULIN ASPART PER UNIT CHARGE SC ONE (02:11)
[2024-01-03 07:16] LABS: Basophils # (auto) 0.02 K/uL (0.00-0.20); Basophils % (auto) 0.3 %; Eosinophils # (auto) 0.05 K/uL (0.00-0.50); Eosinophils % (auto) 0.7 %; Hematocrit (blood only) 34.6 % (42.0-52.0); Immature Granulocytes # (auto) 0.02 K/uL (0.01-0.20); Immature Granulocytes % (auto) 0.3 %; Lymphocytes # (auto) 1.15 K/uL (1.20-3.40); Lymphocytes % (auto) 15.1 %; Mean Corpuscular Hemoglobin 31.9 pg (25.0-34.0); Mean Corpuscular Hgb Conc 34.7 g/dL (32.0-36.0); Monocytes # (auto) 0.75 K/uL (0.11-0.59); Monocytes % (auto) 9.8 %; Neutrophils # (auto) 5.64 K/uL (1.40-6.50); Neutrophils % (auto) 73.8 %; Nucleated RBC # (auto) 0.02 K/uL (0.00-0.12); Nucleated RBC % (auto) 0.3 %; Platelet Count 159 K/uL (130-400); RDW Coefficient of Variation 13.2 % (11.5-14.5); RDW Standard Deviation 44.1 fL (36.4-46.3); Red Blood Count 3.76 M/uL (4.70-6.10); White Blood Count 7.63 K/ul (4.8-10.8)
[2024-01-03 07:51] LABS: BUN Creatinine Ratio 11.9 (10-20); Calcium 7.9 mg/dl (8.6-10.3); Creatinine Clr Calc Pharmacy 80.1 ml/min; Est GFR (African American) 87.6 ml/min; Est GFR (Non-African American) 75.5 ml/min; Potassium 3.9 mmol/L (3.5-5.1)
--- NOTE | 2024-01-03 08:00 | Urology Progress Note ---
Date of Service January 03, 2024 Assessment & Plan (1) Prostate cancer: Plan: Postop day #1 status post robotic prostatectomy Recovery very much on pace so far Ambulate this morning Advance diet Orozco teaching Likely discharge home later today Admission and Anticipated Discharge Date Admission Date: January 02, 2024 Subjective Doing great on postop day #1 status post prostatectomy Minimal discomfortsome gas related pain/distention Has been out of bed Hungry and ready for full breakfast Labs appropriatecreatinine 1.0, hemoglobin stable Physical Exam Physical Exam: Urine clear, Orozco in place Abdomen soft, incisions all appropriate, no bruising, no discharge Results & Data Vital Signs (Past 12 Hours) Vital Signs Temp Pulse Resp BP Pulse Ox O2 Del Method 01/03/24 07:52 36.4 C L 55 L 18 115/63 95 Room Air 01/03/24 03:29 37.2 C 61 16 104/57 L 96 Room Air 01/02/24 23:30 37.1 C 61 16 104/61 95 Room Air PG Care Time/CCT Total # of Minutes Spent Total Time Spent with Patient: Total time spent is greater than 50% in coordination of care (as documented) at patient's floor/unit and/or counseling patient: Coding Level of Care Code None Diagnoses Prostate cancer C61
[2024-01-03 08:42] LABS: Estimated Average Glucose 154 mg/dl
[2024-01-03] MEDS: PANTOprazole 40 MG TAB PO SCH (08:58)
[2024-01-03] MEDS: CEROVITE ADV FORMULA TAB PO SCH (08:58)
[2024-01-03] MEDS: EZETIMIBE 10 MG TAB PO SCH (08:58)
[2024-01-03] MEDS: METOPROLOL SUCC 25MG EXT REL TAB PO SCH (08:58)
[2024-01-03] MEDS: LANTUS PER UNIT CHARGE SC SCH (09:02)
--- NOTE | 2024-01-03 11:57 | Discharge Summary ---
Date of Service January 03, 2024 Admission HPI Per Admitting Provider Patient with prostate cancer here for robotic prostatectomy Admission Exam Per Admitting Provider Constitutional well developed and well nourished Neck neck nontender Respiratory normal respiratory effort; no respiratory distress and does not use accessory muscles Cardiovascular Rate/Rhythm: regular rate Vessels: radial pulses present Extremities: no edema Gastrointestinal (Abdomen) Inspection/Auscultation: abdomen normal to inspection Percussion/Palpation: abdomen soft; abdomen nontender and no guarding Musculoskeletal Head/Neck/Chest: normocephalic and head atraumatic Extremities: extremities normal to inspection Skin no rashes and no lesions Trauma: no evidence of skin trauma Neurologic awake; not obtunded Speech / Cognition: normal speech Motor/Sensory: no tremor Psychiatric Orientation: alert and oriented x 3 Genitourinary no CVA tenderness Lymphatic no lymphadenopathy Principal Diagnosis Prostate cancer Discharge Exam Constitutional well developed and well nourished; no acute distress Respiratory normal respiratory effort; no respiratory distress and no labored breathing Gastrointestinal (Abdomen) Inspection/Auscultation: abdomen normal to inspection Musculoskeletal Head/Neck/Chest: normocephalic Skin Incisions C/D/I Neurologic moves all extremities and awake Psychiatric Orientation: alert and oriented x 3 Genitourinary Orozco draining clear yellow urine Discharge Data Allergies Allergy/AdvReac Type Severity Reaction Status Date / Time shrimp Allergy Intermediate HIVES Verified 01/02/24 06:15 lisinopril AdvReac Intermediate Cough Verified 01/02/24 06:15 Shellfish Allergy Intermediate hives Uncoded 01/02/24 06:15 Procedures Performed Operation Date: 01/02/24 07:30 Actual Procedures p Laparoscopic Robotic Assisted Radical Retropubic Prostatectomy, Pelvic Lymph Node Dissection(Not Applicable) - Bernard Barclay MD Hospital Course (1) Prostate cancer: Postop day #1 status post robotic prostatectomy Recovery very much on pace so far Ambulate this morning Advance diet Orozco teaching Likely discharge home later today Patient tolerating regular diet, has been ambulating in the hallway He is ready for discharge noworders placed Home with Orozco catheter Expected clinical course reviewed, all questions answered Follow-up appointment in place Total Time Total Time Spent Total Time Spent (In Minutes): 29 Discharge Plan Discharge Items Patient Disposition: Home - Self-Care Reason For Visit: Malignant Neoplasm of Prostate Discharge Diagnosis: Malignant neoplasm of prostate Activity: Per Instructions section Lifting: No more than 25 pounds Bathing Comment: Okay to shower after discharge, no tub bath or soaking Sexual Activity: Wait until after follow-up appointment Exercise/Sports: Wait until after follow-up appointment Driving/Machine Use: No driving while taking prescription pain medication Non-emergency contact: Urologist Call non-emergency contact if: your pain is not controlled, your pain is worsening, your temperature is above 101, your wound has increased redness, your wound has increased drainage and your wound pain has increased Follow-up/Referrals: Omer Guajardo MD [Primary Care Provider] - [facility],N[facility] [FAKE FOR SCHEDULES] - 01/08/24 9:00 am Diet: Carb Consistent or DM2 Addtl Attending Provider Instructions: Please take all medications as prescribed and keep all follow-ups as scheduled. Please call our office at [phone] with any questions, concerns or need to reschedule appointments for any reason. We are happy to assist you. We have sent an antibiotic to your pharmacy of choice. Please begin antibiotic as prescribed the day BEFORE your scheduled voiding trial at [facility]. Please continue antibiotic every 12 hours through the day AFTER your voiding trial. Activity: We recommend having someone with you for the first few days after surgery to help care for you. For the first 2 weeks after surgery, we would like you to get up and walk around your house. However, we recommend limit physical activity that would increase your heart rate. This will allow your body to rest and heal. Take naps if you feel tired. Don't lift anything heavier than 10 pounds, mow the law or ride a bicycle until your follow-up appointment. Please avoid long car rides. Home Care: Unless directed otherwise, drink 6 to 8 glasses of water a day (enough to keep your urine light colored). This will also help keep a healthy flow of urine. We recommend using a stool softener for the first two weeks to avoid constipation. Orozco Catheter or Suprapubic Catheter care: Keep the catheter well secured with either a leg back or leg strap with large bag. Empty your bag when it's about half full. You may notice some blood in the bag. This is normal after surgery and while the catheter is in place. Use mild soap (such as Dove or Dial) and water to wash the catheter and the head of your penis daily, or more frequently if needed. Return to your normal diet, we encourage good protein intake to promote healing. You may shower as normal. Please avoid tub baths or soaking until catheter removed and incisions well healed. Wearing sweat pants while you have the catheter is recommended, they will be more comfortable. Follow-up Your follow up appointments for having your catheter removed, and follow up with your physician should already be scheduled. If you have any questions regarding this, please contact our office. Your final pathology report will be discussed at your physician follow-up appointment. Call [facility] at [phone] right away if you have any of the following: Chest pain or trouble breathing (call 911 or go to the hospital) Fever of 101F or higher, uncontrolled vomiting Heavy bleeding, clots, or bright red blood from the catheter Catheter that falls out or stops draining Foul-smelling discharge from your catheter Redness, swelling, warmth, or increased pain at your incision site Drainage, pus, or bleeding from your incision Pending Studies at Discharge: Yes (Pathology) Stand-Alone Forms: [facility] [employer], Smoking Cessation Medications and DC Order Prescriptions: New ciprofloxacin HCl 500 mg tablet 500 mg PO BID Qty: 6 0RF Rx Instructions: Start 1 day prior to catheter removal docusate sodium [Colace] 100 mg capsule 100 mg PO BID Qty: 60 0RF Rx Instructions: Take twice daily for 2 weeks, then as needed for constipation. oxycodone-acetaminophen [Percocet] 5-325 mg tablet 1 tab PO TID PRN (Reason: pain) Qty: 10 0RF Continued Lactobac no.30-Bifidobact no.4 30 billion cell capsule,delayed release(DR/EC) 1 cap PO HS celecoxib [Celebrex] 200 mg capsule 200 mg PO QAM cholecalciferol (vitamin D3) 25 mcg (1,000 unit) capsule 25 mcg PO HS Jardiance 25 mg tablet 25 mg PO QAM isosorbide mononitrate 30 mg tablet extended release 24 hr 15 mg PO BID nitroglycerin 0.4 mg tablet, sublingual 0.4 mg sublingual Q5M PRN (Reason: Chest Pain) Rx Instructions: do not exceed 3 doses per episode metoprolol succinate 25 mg tablet extended release 24 hr 25 mg PO QAM Januvia 100 mg tablet 100 mg PO QAM magnesium oxide 400 mg magnesium tablet 250 mg PO HS coenzyme Q10 100 mg capsule 300 mg PO HS losartan 50 mg Tablet 50 mg PO BID atorvastatin [Lipitor] 40 mg Tablet 40 mg PO HS folic acid 400 mcg Tablet 0.4 mg PO HS metformin 1,000 mg Tablet 1,000 mg PO BID ascorbate calcium (vitamin C) 500 mg Tablet 500 mg PO BID omeprazole 20 mg Capsule,Delayed Release(Dr/Ec) 20 mg PO QAM vitamin B complex Tablet 1 tab PO QAM Multivitamin 50 Plus Tablet 1 tab PO QAM vitamin A-vitamin C-vit E-min Tablet 1 tab PO QAM ezetimibe [Zetia] 10 mg Tablet 10 mg PO QAM alpha lipoic acid 300 mg Capsule 300 mg PO BID calcium carb-mag ox-zinc sulf 333-133-5 mg Tablet 1 tab PO QAM Rx Instructions: administer with a meal aspirin 81 mg Capsule 81 mg PO HS turmeric root extract 500 mg Tablet 1,500 mg PO BID guaifenesin 100 mg/5 mL Liquid 200 mg PO Q4H PRN (Reason: Cough) Discharge Orders: Discharge Order (Routine); Ordered 01/03/24 Ordered By: Melissa Barnes/Other Patient Handouts: Managing Type 2 Diabetes Admission Data Admit Date/Time: 01/02/24 10:34 Attending Provider: Bernard Barclay Admit Provider: Bernard Barclay Primary Care Provider: Omer Guajardo Other Interventions: Discharge Summary Assessment (RN) Last Done: 01/03/24 13:10 Coding Level of Care Code 33245 IN/OBS DISCH 30 MIN/LESS Diagnoses Prostate cancer C61
== END 2024-01-03 14:15 | disposition home or self-care (01) ==
LOC: ASU 05:54 → 3N 10:34 → INTOOBSV 10:34